=== PATIENT | female | born 1970 | race Caucasian/White ===

== ENCOUNTER → 2019-06-29 | Outpatient (CLI) | payer BC ==
[~2019-06-29] MED LIST: HOLD METFORMIN - RECEIVED CONTRAST 20 ML VIAL IV SCH; IOHEXOL 350 MG/ML 100 ML (OMNIPAQUE 350) VIAL IV ONE; NS 100 ML (IVPB) BAG IV ONE
--- NOTE | 2019-06-29 15:27 | Diagnostic Imaging Report ---
PROCEDURE: CT chest, abdomen, and pelvis with contrast. TECHNIQUE: Multiple contiguous axial images were obtained through the chest, abdomen, and pelvis after the administration of intravenous contrast. Auto Exposure Controls were utilized during the CT exam to meet ALARA standards for radiation dose reduction. INDICATION: Pulmonary nodule noted on the outside chest X-ray. Patient also complains of left lower and right lower quadrant pain and bloating. COMPARISON: No prior imaging is available for comparison. CT CHEST: No axillary lymphadenopathy is identified. No definite mediastinal or hilar lymphadenopathy is identified. No pericardial or pleural fluid is detected. Pulmonary parenchymal evaluation demonstrates the lungs to be clear. No infiltrates are seen. No parenchymal mass or nodule is identified. Central airways are patent. IMPRESSION: Unremarkable CT of the chest. No thoracic lymphadenopathy is seen. No pulmonary mass or nodule is identified to account for chest renographic abnormality. Please correlate with the chest X-ray, as this is not available for direct comparison. CT ABDOMEN AND PELVIS: No discrete liver mass is identified. Gallbladder is unremarkable. No biliary duct dilatation is seen. The pancreas and spleen are unremarkable. No adrenal mass is identified. No hydronephrosis is detected. The aorta is non-aneurysmal. The small and large bowel loops are normal in caliber. There is no evidence of obstruction. No free fluid or fluid collection is identified. Imaging through the pelvis does demonstrate a large calcified mass in the right aspect of the uterus measuring 4.8 cm consistent with a fibroid. Additional noncalcified masses in the uterus are noted consistent with fibroids as well. The bladder is unremarkable. No definite abdominal or pelvic lymphadenopathy is seen. IMPRESSION: 1. Fibroid uterus. 2. Otherwise unremarkable CT of the abdomen and pelvis. No acute feature is detected. Dictated by: Dictated on workstation # [id number]
== END ==
LOC: RAD 14:21
PROVIDERS: ATTEND Nurse Practitioner Family
DX: D25.9 Leiomyoma of uterus, unspecified (principal); R93.89 Abnormal findings on diagnostic imaging of other specified body structures
CPT/HCPCS: 71260; 74177